=== PATIENT | male | born 1975 | race Caucasian/White ===

== ENCOUNTER 2024-10-13 15:27 | Emergency (ER) | payer MEDICAID, SELFPAY ==
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
--- NOTE | 2024-10-13 15:31 | ED.GENADULT ---
HPI - General Adult General Chief complaint: Unspecified Stated complaint: altercation Time Seen by Provider: 10/13/24 15:31 History of Present Illness HPI narrative: 49-year-old male unknown medical history presents the ER under police custody for evaluation of injuries. Patient was noncompliant and providing this provider the history, so the history is obtained by law enforcement who is at the bedside. Cord along for cement, patient got into of the argument with a neighbor in and the police were called on the scene. Patient became combative with law enforcement and was subdued and placed in handcuffs. After being placed in handcuffs, patient began complaining of neck pain and cul de breathing. Patient would later admit to multiple neck surgeries, on gabapentin, oxycodone, OxyContin. Review of Systems Review of Systems: All systems reviewed & are unremarkable except as noted in HPI and below Exam Const: General: well developed, alert, awake and Physically active Nutritional Appearance: obese Orientation/consciousness: oriented to person, oriented to place, oriented to time and patient oriented x3 Other: Patient uncooperative during exam HENMT: Head: normal to inspection Eyes: General: appearance normal, both eyes and all related structures Conjunctivae: conjunctivae normal Resp: Effort & Inspection: normal respiratory effort and able to speak in complete sentences Cardio: Rate: regular rate Rhythm: regular rhythm Back/Spine/Pelvis: Cervical Spine: collar present Other: C-collar in place. Skin: General skin exam: normal color Wounds: wounds noted (Superficial laceration noted above right ear) Neuro: General: oriented to person, oriented to place, oriented to time, patient oriented x3, gait normal and moves all extremities Psych: Appearance: disheveled Speech and movement: Normal speech and movement present and Psychomotor agitation in speech present Affect: normal affect Attitude: cooperative Thought process: Normal thought process present Thought content: Yes Normal thought content present Medical Decision Making MDM Narrative Medical decision making narrative: In summary: 49-year-old male presents to the ER in the custody of law enforcement for evaluation of suspected neck pain. EMS placed a C-collar. Patient was not compliant with allowing this provider to examine him. Patient requested to be discharged to of law enforcement custody. Discharge Plan Discharge Clinical Impression: Neck pain Patient Disposition: Home Condition: Stable Instructions: Antibiotic Form, Acute Neck Pain (ED) Patient Language: Slovak Time of Disposition: 16:37
[2024-10-13 15:35] VITALS: BP 133/75; PULSE 112; RESP 20; TEMP 36.6; O2SAT 93
--- OUTSIDE RECORDS SUMMARY | 2024-10-13 16:48 | XMS_ITS | Encounter Summary ---
Author Organization [facility] Address [address] [place] [address] Care Team Providers Care Experience Design Director Name Role Phone Huan Valle MD Primary Care Provider [phone] Reason for Visit * Reason Comments Refill Request Encounter Details Date Type Department Care Team (Late st Contact Info) Description 10/12/2024 Refill [facility] - Internal Medicine [address] [facility] [address] [facility] [address] [place] [address] Huan Valle MD [address] [place] [address] [address] [place] [address] Refill Request Social History Tobacco Use Types Packs/Day Years Used Date Smoking Tobacco: Never Smokeless Tobacco: Never PHQ-2 Answer Date Recorded Patient Health Questionnaire-2 Score 0 09/22/2024 Sex and Gender Information Value Date Recorded Sex Assigned at Not on file Legal 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 Gender Identity Not on file Sexual Orientation Not on file documented as of this encounter Miscellaneous Notes * Telephone Encounter - Surekha Perez RN - 10/13/2024 2:43 PM CDT CONTROLLED MEDICATION REFILL REQUEST Medication: Requested Prescriptions Pending Prescriptions Disp Refills traMADol (Ultram) 50 MG tablet [Pharmacy Med Name: traMADol HCl 50 MG Oral Tablet] 120 tablet 0 Sig: TAKE 1 TABLET BY MOUTH EVERY 6 HOURS NEEDED FOR PAIN Last Office Visit: 09/22/2024 Last Video Visit: Visit date not found Next Appointment: 03/03/2025 Follow-up: 6 months Date of last refill: 08/21/2024 Prescription drug management agreement: Not on file documented in this encounter Plan of Treatment Upcoming Encounters Date Type Department Care Team (Late st Contact Info) Description 12/16/2024 10:45 AM CDT Office Visit [facility] hospital [address], [facility] [address] [place] [address] Steve Garza MD [address] [place] [address] 03/03/2025 2:15 PM ASSET ADMINISTRATOR Office Visit [facility] - Internal Medicine [address] [place] [address] [address] [place] [id number] Huan Valle MD [address] [facility] [address] [place] [id number] documented as of this encounter Visit Diagnoses Diagnosis Chronic low back pain, unspecified back pain laterality, unspecified whether sciatica present documented in this encounter Care Teams Experience Design Director Relationship Specialty Start Date End Date Huan Valle MD PCP - General Internal Medicine 05/25/22 documented as of this encounter
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
--- OUTSIDE RECORDS SUMMARY | 2024-10-13 16:48 | XMS_ITS | Encounter Summary ---
Author Organization [facility] Address [address] [place] [address] Care Team Providers Care Pelletizer Tender Name Role Phone Huan Valle MD Primary Care Provider Encounter Details Date Type Department Care Team (Late st Contact Info) Description 09/19/2024 Telephone [facility] - Internal Medicine [address] [place] [address] Huan Valle MD [address] [place], [place] [address]y [address] [place] [address] Social History Tobacco Use Types Packs/Day Years Used Date Smoking Tobacco: Never Smokeless Tobacco: Never PHQ-2 Answer Date Recorded Patient Health Questionnaire-2 Score 0 09/22/2024 Sex and Gender Information Value Date Recorded Sex Assigned at Not on file Legal 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 Question Answer Date of Assessment Author Little interest or pleasure in doing things Not at all 09/22/2024 8:12 AM Ladonna Cruz CMA Feeling down, depressed, or hopeless Not at all 09/22/2024 8:12 AM Ladonna Cruz CMA Patient Health Questionnaire -2 Score 0 09/22/2024 8:12 AM Ladonna Cruz CMA documented as of this encounter Plan of Treatment Upcoming Encounters Date Type Department Care Team (Late st Contact Info) Description 12/16/2024 10:45 AM CDT Office Visit [facility] [address], [facility] [address] [place] [address] Steve Garza MD [address] [place] [id number] 03/03/2025 2:15 PM ASSET PROTECTION OFFICER Office Visit [facility] - Internal Medicine [address] [place] [address] [address] [place] [id number] Huan Valle MD [address] [facility] [address] [place] [phone] documented as of this encounter Visit Diagnoses Not on filedocumented in this encounter Care Teams Pelletizer Tender Relationship Specialty Start Date End Date Huan Valle MD PCP - General Internal Medicine 05/25/22 documented as of this encounter
--- OUTSIDE RECORDS SUMMARY | 2024-10-13 16:48 | XMS_ITS | Patient Health Record ---
Author Organization [facility] [employer] [facility] Address [address] [place] [address] Care Team Providers Care Lip And Gate Builder Name Role Phone arriola, dejah Primary Care Provider Unavail aristeo Montgomery MD, Primitivo Unavailable [phone] REASON FOR REFERRAL No Information MEDICATIONS Medication SIG (Take, Route, Fr equency, Duration) Notes Start Date End Date Status Pravastatin Sodium A ctive traMADol HCl 50 MG (Schedule IV Drug) ( Prior Auth#:[id number]) Oral for 20 Active Lisinopril 10 MG TAKE 1 TABLET BY JEYSON TH ONCE DAILY Oral for 90 Active Cetirizine HCl 10 MG TAKE 1 TABLET BY MO UTH ONCE DAILY Oral for 90 Active IMMUNIZATIONS Vaccine Route Administration Date Status Comme nts Influenza Unknown 11/22/2015 Administered Influenza Unknown 11/29/2018 Administered pneumoccocal Unknown 01/19/2016 Refused pneumoccocal Unknown 04/03/2016 Refused pneumoccocal Unknown 07/31/2019 Refused Influenza Unknown 01/19/2016 Pending SOCIAL HISTORY Tobacco Use: Social History Observation Description Date Details (start date - stop date) Never Smoker NA - NA Sex Assigned At : Social History Observation Description Sex Assigned At Unknown Tobacco Use: Question Answer Notes Patient is a: nonsmoker Alcohol screening: Question Answer Notes Did you have a drink contain ing alcohol in the past year? Yes How often did you have a dri nk containing alcohol in the past year? Two to four times a month (2 points) How many drinks did you have on a typical day when you were drinking in the past year? 1 or 2 (0 points) How often did you have six o r more drinks on one occasion in the past year? 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 confirmed Acquired deform ity of left foot (disorder) (810290508) Problem Encounter for other orthopedic aftercare (Z47.89) Active confirmed Problem Strain of muscle(s) and tendon(s) of peroneal muscle group at lower leg level, left leg, initial encounter (S86.312A) Active confirmed Strain of left peroneal muscle and/or tendon (disorder) (28813793712971325 ) Problem Encounter for follow-up examination after completed treatment for conditions other than malignant neoplasm (Z09) Active confirmed 318036947 Problem Pain in left ankle and joints of left foot (M25.572) Active confirmed 221676065 Problem Pain in left foot (M79.672) Active confirmed 023180132788440 Problem Sprain of other ligament of left ankle, initial encounter (S93.492A) Active confirmed 48681183 Problem Other fall on same level, initial encounter (W18.39XA) Active confirmed 02755448 Problem Activity, walking an animal (Y93.K1) Active confirmed [id number] PLAN OF TREATMENT No Information Insurance Providers Payer Name Payer Address Payer Phone Subscriber Number Group Number Insured Name Patient Relationship to Insured Coverage Start Date Coverage End Date [facility] [address] [address] [place] [address] [id number] Ashanti Neal Spouse - patient is the spouse of the insured MEDICAL (GENERAL) HISTORY Medical History History ICD Code hypertension stroke kidney stones acid reflux Surgical History Surgery Date(Month/Year) left peroneal tendon reconst ruction with fibular osteotomy and calcaneal and first metatarsal osteotomies 01/25/16 rotator cuff tear repair ORIF TIb/Fib
[2024-10-13 17:08] VITALS: RESP 18; O2SAT 96
--- NOTE | 2024-10-13 17:11 | PC.NURSE ---
Pt taken to CT scan of the neck, Pt refused CT scan. EDP made aware.
[2024-10-13 17:12] VITALS: BP 113/69; PULSE 103; RESP 18; TEMP 36.7; O2SAT 96
== END 2024-10-13 17:19 ==
PROVIDERS: Emergency Provider Nurse Practitioner Family
DX: M54.2 Cervicalgia (principal)
CPT/HCPCS: 72125; 99284